=== PATIENT | male | born 1980 | race Two or more races ===

== ENCOUNTER 2018-05-01 12:28 | Emergency (ER) | payer OTHER ==
[2018-05-01 12:57] VITALS: BP 126/85; PULSE 79; TEMP 98.6; BMI 33.9
--- NOTE | 2018-05-01 13:50 | PDOC ---
History of Present Illness - General Chief Complaint: Injury Stated Complaint: FALL Time Seen by Provider: 05/01/18 13:35 - History of Present Illness Initial Comments: 05/01/18 13:48 38-year-old male without comorbidities, current on tetanus presents for evaluation after head trauma. He states a 20 pound iron beam fell on his head while trying to hang. There was no loss of consciousness he does have some memory loss about the event and the events that followed his hospital arrival, blurry vision at times. No nausea or vomiting. He denies loss of consciousness. Past History - Past Medical History Allergies/Adverse Reactions: Allergies Allergy/AdvReac Type Severity Reaction Status Date / Time No Known Allergies Allergy Verified 05/01/18 12:52 Home Medications: Ambulatory Orders NK [No Known Home Medication] 05/01/18 COPD: No - Immunization History Immunization Up to Date: Yes - Suicide/Smoking/Psychosocial Hx Smoking History: Never smoked Hx Alcohol Use: No Drug/Substance Use Hx: No Review of Systems - Review of Systems HEENTM: Yes: Blurred Vision ABD/GI: No: Nausea, Vomiting Neurological: Yes: Headache, Dizziness *Physical Exam - Vital Signs Last Vital Signs Temp Pulse Resp BP Pulse Ox 98.6 F 79 18 126/85 97 05/01/18 12:53 05/01/18 12:53 05/01/18 12:53 05/01/18 12:53 05/01/18 12:53 - Physical Exam Comments: 05/01/18 13:50 HEAD: NC/ there is a superfical abrasion on the superior aspect of the midline of the scalp, no laceration small hematoma EYES: Conjuntiva clear, EOMI; PERRL Ears: Canals and TM's normal NOSE: No d/c THROAT: Moist mucous membrances, oral pharanx clear, uvula midline NECK: Supple without adenopathy CARDIAC: S1 S2 LUNGS: CTA Full and Equal breath sounds ABDOMEN: Soft NT ND MS: Full ROM in all joints without edema NEUROLOGIC: No gross sensory or motor deficits, NVID SKIN: Normal color and temperature no lesions or rashes 05/01/18 15:06 Moderate Sedation - Procedure Monitoring Vital Signs: Procedure Monitoring Vital Signs Temperature 98.6 F 05/01/18 12:53 Pulse Rate 79 05/01/18 12:53 Respiratory Rate 18 05/01/18 12:53 Blood Pressure 126/85 02/06/19 12:53 O2 Sat by Pulse Oximetry (%) 97 05/01/18 12:53 ED Treatment Course - RADIOLOGY Radiology Studies Ordered: Category Date Time Status HEAD CT WITHOUT CONTRAST [CT] Stat CT Scan 05/01/18 13:48 Ordered *DC/Admit/Observation/Transfer Diagnosis at time of Disposition: Concussion - Discharge Dispostion Disposition: HOME Condition at time of disposition: Stable Decision to Admit order: No - Referrals Referrals: Miki Valenzuela MD [Primary Care Provider] - Kristian Rico MD [Staff Physician] - - Patient Instructions Printed Discharge Instructions: DI for Concussion, Concussion, Postconcussion Syndrome, DI for Postconcussion Syndrome Additional Instructions: He may take Tylenol as directed for pain only. Return to the emergency room should symptoms worsen or go unresolved. No work or physical activity until cleared by neurology. Return to the emergency room should symptoms worsen. Her CAT scan today was negative - Post Discharge Activity
== END 2018-05-01 15:48 | disposition home or self-care (01) ==
LOC: JERFT 12:28
DX: S06.0X0A Concussion without loss of consciousness, initial encounter (principal); S00.01XA Abrasion of scalp, initial encounter; W22.8XXA Striking against or struck by other objects, initial encounter; Y93.89 Activity, other specified; Y92.89 Other specified places as the place of occurrence of the external cause; Y99.8 Other external cause status
CPT/HCPCS: 70450-TC; 99281-25